=== PATIENT | female | born 1960 | race Caucasian/White ===

== ENCOUNTER 2017-10-04 11:21 | Emergency (ER) | payer SELFPAY ==
[~2017-10-04] VITALS: Ht 162.6 cm; Wt 59.1 kg
[2017-10-04] MEDS ORDERED: HTN MED (11:26)
[2017-10-04] MEDS ORDERED: MORPHINE SULFATE 4 MG/ML SYRINGE IVP ONE (12:45)
[2017-10-04] MEDS ORDERED: MORPHINE SULFATE 4 MG/ML SYRINGE IM ONE (12:45)
[2017-10-04] MEDS ORDERED: ONDANSETRON HCL 4 MG/2 ML VIAL IM ONE (12:45)
[2017-10-04] MEDS ORDERED: ONDANSETRON HCL 4 MG/2 ML VIAL IVP ONE (12:45)
[2017-10-04 12:56] LABS: BASOPHILS % (AUTO) 0.9 % (0.0-2.0); EOSINOPHILS % (AUTO) 1.2 % (1.0-6.0); HEMATOCRIT 40.9 % (36-46); HEMOGLOBIN 13.7 g/dL (12.0-16.0); LYMPHOCYTES # (AUTO) 1.9 K/uL (1.0-4.8); LYMPHOCYTES % (AUTO) 24.9 % (22.0-44.0); MEAN CORPUSCULAR HEMOGLOBIN 27.7 pg (26.0-34.0); MEAN CORPUSCULAR HGB CONC 33.5 G/dL (31.0-37.0); MEAN CORPUSCULAR VOLUME 83 fL (80-100); MONOCYTES # (AUTO) 0.6 K/uL (0.1-1.0); MONOCYTES % (AUTO) 7.4 % (2.0-9.0); NEUTROPHILS % (AUTO) 65.6 % (40.0-70.0); PLATELET COUNT (AUTO) 239 K/uL (150-450); RED BLOOD CELL COUNT(AUTO) 4.94 MIL/uL (4.00-5.20); RED CELL DISTRIBUTION WIDTH 13.7 % (11.5-14.5)
[2017-10-04 13:07] LABS: ANION GAP 8 mmol/L (8-16); CALCIUM, TOTAL 9.4 mg/dL (8.8-10.5); CARBON DIOXIDE 30 mmol/L (22-29); CHLORIDE 104 mmol/L (98-107); CREATININE 0.69 mg/dL (0.60-1.30); GLOMERULAR FILTR. RATE CALC > 60 mL/min (>60); GLUCOSE,RANDOM 100 mg/dL (70-110); POTASSIUM 3.7 mmol/L (3.5-5.1); SODIUM SERUM 142 mmol/L (136-145); UREA NITROGEN, BLOOD 9 mg/dL (7-18)
[2017-10-04 13:13] LABS: ALANINE AMINOTRANSFERASE 34 U/L (12-78); ALBUMIN 3.9 g/dL (3.4-5.0); ALKALINE PHOSPHATASE 149 U/L (46-116); ASPARTATE AMINOTRANSFERASE 28 U/L (15-37); TOTAL PROTEIN, SERUM 8.7 g/dL (6.4-8.2)
[2017-10-04 14:04] VITALS: BP 148/94
== END 2017-10-04 14:39 | disposition home or self-care (01) ==
LOC: EMS 11:23
DX: M54.5 Low back pain (principal); G89.29 Other chronic pain
CPT/HCPCS: 36415; 72131; 80053; 85025; 96374; 96375; 99285; J2270; J2405